=== PATIENT | male | born 1980 | race Caucasian/White ===

== ENCOUNTER 2022-09-09 15:39 | Emergency (ER) | payer OTHER, SELFPAY ==
[2022-09-09 15:48] VITALS: BP 179/115; PULSE 87; RESP 16; TEMP 36; O2SAT 100
--- NOTE | 2022-09-09 16:02 | ED.EXTPRO ---
HPI - Extremity Problem General Chief complaint: Skin/Abscess/Foreign Body Stated complaint: cellulitis on left leg Time Seen by Provider: 09/09/22 15:49 Source: patient and RN notes reviewed Mode of arrival: ambulatory Limitations: no limitations History of Present Illness HPI Narrative: Primary care physician for this patient called to discuss cellulitis. Patient has been having symptoms for the last 3 days. He is a chronic alcoholic. He has been having some redness and 1 of his toes on left foot and it seems to be going up proximal on his foot. his primary care physician wanted to do a direct admit at the local hospital but they do not have any beds. Patient states that he does not want to stay in the hospital he would rather go home and he states that he will take his medication as prescribed. MD Complaint: extremity pain Onset (ago): day(s) (3) Pain Consistency: constant Location: left and lower extremity Quality: burning, aching and dull Radiation: proximal Relieving factors: rest Exacerbating factors: weight bearing, walking and palpation Associated symptoms: denies other symptoms Related Data Allergies Allergy/AdvReac Type Severity Reaction Status Date / Time No Known Allergies Allergy Verified 09/09/22 15:55 Review of Systems Review of Systems: All systems reviewed & are unremarkable except as noted in HPI and below Constitutional: Constitutional: Denies chills and Denies fatigue Gastrointestinal: Gastrointestinal: Denies nausea and Denies vomiting PMFSH Past Medical History Medical History (Updated 09/09/22 @ 19:00 by Fabricio Mueller MD) Alcoholism Anxiety Hypertension Surgical History Surgical History (Updated 09/09/22 @ 16:22 by Fabricio Mueller MD) No pertinent past surgical history Social History Social History (Updated 09/09/22 @ 16:17 by Fabricio Mueller MD) Smoking status: Former smoker Alcohol intake: current Drinks per week: 105 Exam Const: General: healthy appearing, no acute distress and alert Nutritional Appearance: well nourished and thin Orientation/consciousness: patient oriented x3 Limitations: no limitations HENMT: Head: normal to inspection Ears: external ears normal Eyes: Conjunctivae: conjunctivae normal Pupils: Equal, round and reactive pupils present EOM: EOMs intact bilaterally Neck: Neck: normal visual inspection Resp: Effort & Inspection: normal respiratory effort Auscultation: clear to auscultation bilaterally Cardio: Rate: regular rate Rhythm: regular rhythm GI: GI Palp: Yes Soft to palpation and No Tenderness to palpation present (GI) Auscultation: normal bowel sounds Back/Spine/Pelvis: Cervical Spine: cervical ROM normal Thoracic/Lumbar Spine: thoraco-lumbar ROM normal Skin: General skin exam: normal color and erythema Rashes: rashes noted left foot borders indistinct, color blanching, surface erythematous and warm and tender Neuro: General: patient oriented x3, moves all extremities, no focal motor deficits and CN's II-XI intact bilaterally Speech: normal speech Gait exam (Neuro): Normal gait present ( Limping gait) Extrem: General: normal to inspection and no clubbing, cyanosis or edema Psych: Mental Status: mental status grossly normal Affect: normal affect Attitude: cooperative Course Vital Signs Vital signs: Vital Signs Temperature 36.0 C L 09/09/22 15:48 Pulse Rate 87 09/09/22 15:48 Respiratory Rate 16 09/09/22 15:48 Blood Pressure 179/115 H 09/09/22 15:48 Pulse Oximetry 100 09/09/22 15:48 Oxygen Delivery Room Air 09/09/22 15:48 Temperature 37.2 C 09/09/22 19:22 Pulse Rate 77 09/09/22 19:22 Respiratory Rate 200 H 09/09/22 19:22 Blood Pressure 134/88 09/09/22 19:22 Pulse Oximetry 100 09/09/22 19:22 Oxygen Delivery Room Air 09/09/22 19:22 MDM - Extremity (Nontraumatic) MDM Narrative Medical decision making narrative: Patient has a normal WBC. I believe his lactic aci
[2022-09-09 16:47] LABS: Basophils Absolute Auto 0.03 K/mm3 (0.00-0.10); Basophils Percent Auto 0.5 % (0.0-1.0); Eosinophils Absolute Auto 0.04 K/mm3 (0.02-0.50); Eosinophils Percent Auto 0.6 % (1.0-6.0); Hematocrit 35.7 % (40.0-54.0); Hemoglobin 12.6 g/dL (14.0-18.0); Lymphocytes Percent Auto 37.2 % (18.0-42.0); Mean Corpuscular HGB Conc 35.3 g/dL (32.0-36.0); Mean Corpuscular Hemoglobin 32.4 pg (27.0-31.0); Mean Corpuscular Volume 91.8 fL (78.0-102.0); Mean Platelet Volume 8.6 fl (8.7-11.0); Monocytes Absolute Auto 0.75 K/mm3 (0.10-0.90); Monocytes Percent Auto 12.1 % (2.0-11.0); Neutrophils Absolute Auto 3.1 K/mm3 (1.7-7.2); Neutrophils Percent Auto 49.6 % (50.0-70.0); Platelet Count Result 102 K/mm3 (150-420); Red Blood Count 3.89 M/mm3 (4.70-6.10); Red Cell Distribution Width 12.7 % (11.6-14.4); White Blood Count 6.2 K/mm3 (4.8-10.8)
[2022-09-09 17:01] LABS: Alanine Aminotransferase 90 U/L (16-63); Albumin Level 4.1 g/dL (3.4-5.0); Alkaline Phosphatase 91 U/L (46-116); Anion Gap 15 mmol/L (8-16); Aspartate Amino Transferase 62 U/L (15-37); Bilirubin,Total 0.9 mg/dL (0.00-1.00); Blood Urea Nitrogen 6 mg/dL (7-18); CRP 1.2 mg/dL (0.0-0.9); Calcium 8.5 mg/dL (8.5-10.1); Carbon Dioxide 24 mmol/L (21-32); Chloride 92 mmol/L (98-108); Estimated CRCL calculation 131 ml/min; Estimated Glomerular Filt Rate > 60; Glucose 93 mg/dL (70-99); Osmolality Calculated 269 mOsm/kg (285-295); Potassium 3.5 mmol/L (3.5-5.1); Sodium 131 mmol/L (136-145); Total Protein 8.5 g/dL (6.4-8.2)
[2022-09-09 17:06] LABS: Lactic Acid Reflex 2.8 mmol/L (0.4-2.0)
[2022-09-09 17:36] VITALS: BP 167/108; PULSE 85; RESP 16; O2SAT 97
[2022-09-09] MEDS: cloNIDine HCL 0.1 MG TABLET 0.2 MG PO (17:38)
[2022-09-09 18:11] VITALS: BP 175/108
[2022-09-09 18:26] VITALS: BP 150/110
[2022-09-09] MEDS: hydrALAZINE 10 MG TABLET PO (18:47)
[2022-09-09] MEDS: CEPHALEXIN 500 MG CAPSULE PO (19:15)
[2022-09-09 19:22] VITALS: BP 134/88; PULSE 77; RESP 200; TEMP 37.2; O2SAT 100
== END 2022-09-09 19:25 | disposition home or self-care (01) ==
PROVIDERS: Emergency Provider Emergency Medicine; PCP Family Medicine
DX: L03.116 Cellulitis of left lower limb (principal); I10 Essential (primary) hypertension; Z87.891 Personal history of nicotine dependence
CPT/HCPCS: 36415; 80053; 83605; 85025; 86140; 87040; 99283; A9270

== ENCOUNTER 2023-04-25 09:14 | Outpatient (CLI) | payer OTHER, SELFPAY ==
--- NOTE | ~2023-04-25 | XR_ITS ---
Clinical Indication: Weight loss PA and lateral views of the chest: Comparison: None Findings: The lungs are clear, without evidence of focal consolidation or pleural effusion. Cardiome diastinal silhouette is within normal limits. Bones and soft tissues are unremarkable. Impression: Normal chest. Reviewed, dictated and finalized at location . Impression: Normal chest.
--- NOTE | ~2023-04-25 | CT_ITS ---
CT of the Abdomen and Pelvis: Indication: Weight loss Technique: 2.5 mm axial scans were obtained through the abdomen and pelvis following intravenous adm inistration of 100 cc of Omnipaque 350. Dose reduction technique was used on this scan by utilizing a utomated exposure control and iterative reconstruction technique. The dose-length product (DLP) was 2 47.38 mGy-cm. Findings: Scans through the lung bases are unremarkable. The liver, spleen, pancreas, gallbladder, adrenals and kidneys are within normal limits. No evidence of aortic aneurysm. No lymphadenopathy. No bowel obstruction or bowel wall thickening. There is no evidence to suggest acute appendicitis. Images through the pelvis were performed. Suspected diffuse urinary bladder wall thickening. Prostate gland and seminal vesicles are unremarkable. No ascites. Impression: Possible cystitis. Correlate with urinalysis. No other significant abnormalities. Reviewed, dictated and finalized at [facility]. Impression: Possible cystitis. Correlate with urinalysis. No other significant abnormalities.
== END 2023-04-25 09:15 | disposition home or self-care (01) ==
LOC: CHSIMG 09:15
PROVIDERS: PCP Family Medicine; Visit Provider Family Medicine
DX: R63.4 Abnormal weight loss (principal); Z87.891 Personal history of nicotine dependence
CPT/HCPCS: 71046; 74177; Q9967

== ENCOUNTER 2023-05-12 10:25 | Outpatient (RCR) | payer OTHER, SELFPAY ==
--- NOTE | 2023-05-12 14:01 | OTOPEVAL1 ---
Assessment and note entered by Isaura Cohn, OT Evaluation Information Assessment Status Evaluation Diagnosis Tennis elbow Onset 02/2023 Subjective Information The patient stated 6/10 pain at the time of evaluation. He states the pain is at its worst when he is using his arm. He stated he has numbness and tingling that starts in the elbow and radiates up and down his arm at time. The patient 's pain is in lateral elbow, medial epicondyle, into forearm and palm of hand. When the patient experiences numbness and tingling he also can feel it in his fingers. During the evaluation, the patient reports pain and tightness in wrist wrist during wrist extension and that supination and lifting cause the most pain. The patient reports trying ice at home for pain and it does not help and makes it worse. Reported Pain Level Pain Score 6: Self Report Assessment OT Clinical Summary The patient is a 43 year old male who was referred to outpatient OT due to R Tennis Elbow. The patient demonstrates 6/10 pain in elbow, decreased UE strength, moderate numbness and tingling which affects his ability to perform ADLs and work tasks. The patient previously demonstrated 0/10 pain, no numbness or tingling and WNL UE strength. The patient requires skilled OT to address these deficits and return to PLOF. Plan of Care Interventions Therapeutic Exercise,Manual Therapy,Neuro Re- education,Therapeutic Activities,Hot Pack/Cold Pack,Electrical Stimulation,Self-Care/Home Management,Ultrasound OT Services Indicated Yes Treatment Frequency and 1-2x/week for 10 visits. Duration These treatments will address the objective and functional deficits as defined above. The patient will be advanced safely and appropriately in order for the patient to progress towards his/her prior level of function. Additional exercises will be introduced and as well as a comprehensive home exercise program upon discharge, if needed, ?to ensure carryover of functional gains achieved in the clinic. This treatment plan has been reviewed and agreement upon by the patient.
== END 2023-06-23 23:59 | disposition home or self-care (01) ==
LOC: CHSOT 10:25
PROVIDERS: PCP Family Medicine; Visit Provider Family Medicine
DX: M77.10 Lateral epicondylitis, unspecified elbow (principal)
CPT/HCPCS: 97014; 97110; 97140; 97165; G0283